=== PATIENT | male | born 1970 | race Two or more races ===

== ENCOUNTER 2021-05-19 05:15 | Day surgery (SDC) | payer OTHER ==
[2021-05-19] MEDS ORDERED: PERCOCET 5-3251 EACH PO (08:16)
[2021-05-19] MEDS ORDERED: COLACE100 MG PO (08:16)
[2021-05-19] MEDS ORDERED: NEURONTIN300 MG PO (08:49)
== END 2021-05-19 18:25 | disposition home or self-care (01) ==
LOC: CIR.AMB 05:15
PROVIDERS: ATTEND Surgery
DX: K64.8 Other hemorrhoids (principal); K64.4 Residual hemorrhoidal skin tags